=== PATIENT | male | born 1950 | race Caucasian/White ===

== ENCOUNTER 2017-07-13 09:33 | Inpatient (IN) | payer MEDICARE, BC ==
[~2017-07-13] VITALS: Ht 190.5 cm; Wt 106.0 kg
[~2017-07-13 09:33] MED LIST: midazolam 2 mg/2 ml injection ONE
[2017-07-13] MEDS ORDERED: adenosine 3mg/ml 2ml vial IV ONE (09:35)
[2017-07-13] MEDS ORDERED: aspirin 81mg tab.chew PO ONE (09:55)
[2017-07-13 10:10] LABS: BASOPHILS % (AUTO) 0.2 % (0-1); EOSINOPHILS # (AUTO) 0.2 X10'3 (0-0.9); EOSINOPHILS % (AUTO) 2.7 % (0-6); HEMATOCRIT 42.1 % (42.0-52.0); HEMOGLOBIN 14.3 g/dl (14.0-17.9); LYMPHOCYTES # (AUTO) 2.4 X10'3 (1.1-4.8); LYMPHOCYTES % (AUTO) 35.6 % (21-51); MEAN CORPUSCULAR HEMOGLOBIN 30.6 PG (27.0-31.0); MEAN CORPUSCULAR VOLUME 89.8 FL (78-98); MEAN PLATELET VOLUME 10.9 FL (7.4-10.4); MONOCYTES # (AUTO) 0.9 X10'3 (0-0.9); MONOCYTES % (AUTO) 14.2 % (2-12); NEUTROPHILS # (AUTO) 3.2 X10'3 (1.8-7.7); NEUTROPHILS % (AUTO) 47.3 % (42-75); RED BLOOD COUNT 4.68 X10'6 (4.70-6.10); RED CELL DISTRIBUTION WIDTH 17.1 % (11.5-14.5); WHITE BLOOD COUNT 6.7 X10'3 (4.5-11.0)
[2017-07-13 10:28] LABS: ALANINE AMINOTRANSFERASE 41 U/L (12-78); ALBUMIN 3.9 G/DL (3.4-5.0); ALKALINE PHOSPHATASE 103 IU/L (46-116); ANION GAP 14 (8-16); ASPARTATE AMINO TRANSFERASE 43 U/L (10-37); BILIRUBIN,TOTAL 0.6 MG/DL (0.1-1.0); BLOOD UREA NITROGEN 18 MG/DL (7-18); BUN/CREATININE RATIO 18.4 (5.4-32.0); CALCIUM 8.9 MG/DL (8.5-10.1); CHLORIDE 105 MMOL/L (99-107); CREATININE 0.98 MG/DL (0.60-1.10); GLUCOSE 129 MG/DL (70-104); MAGNESIUM 1.4 MG/DL (1.5-2.4); POTASSIUM 3.7 MMOL/L (3.5-5.1); SODIUM 141 MMOL/L (135-145); TOTAL CARBON DIOXIDE 22.5 MMOL/L (24-32); eGFR 77 ML/MIN
[2017-07-13] MEDS: amiodarone/D5 360MG/200ML BAG 200 ML IV SCH ×2 (10:29→19:27)
[2017-07-13 10:47] LABS: PLATELET COUNT 136 X10'3 (140-440)
[2017-07-13] MEDS ORDERED: CELE-193 PO (10:57)
[2017-07-13] MEDS ORDERED: COU7.5T PO (10:57)
[2017-07-13] MEDS ORDERED: OMEP40CA37 PO (10:57)
[2017-07-13] MEDS ORDERED: potassium Cl 20 mEq SR tablet PO STA (12:03)
[2017-07-13] MEDS ORDERED: magnesium 2GM in 50ml NS 50 ML IV ONE (12:05)
[2017-07-13] MEDS ORDERED: magnesium hydroxide 30ml (MOM) UD suspension PO PRN (12:25)
[2017-07-13] MEDS ORDERED: acetaminophen 325mg tablet PO PRN ×2 (12:25)
[2017-07-13] MEDS ORDERED: potassium Cl 20 mEq SR tablet PO PRN ×2 (12:25)
[2017-07-13] MEDS ORDERED: magnesium Cl slow-release 64mg tablet PO PRN (12:25)
[2017-07-13] MEDS ORDERED: mag hydrox/Alum hydrox/simeth 30ml oral suspension PO PRN (12:25)
[2017-07-13] MEDS ORDERED: ondansetron/PF 4mg/2ml inj IV PRN (12:25)
[2017-07-13] MEDS ORDERED: magnesium 4gm in 100ml NS 100 ML IV PRN (12:25)
[2017-07-13] MEDS ORDERED: HYDROcodone/acetaminophen 10/325mg tab PO PRN (12:25)
[2017-07-13] MEDS: K and/or MAG REPLACEMENT MC SCH (12:25)
[2017-07-13] MEDS ORDERED: potassium Cl 40MEQ/NS 500ml 500 ML IV PRN ×2 (12:25)
[2017-07-13] MEDS ORDERED: magnesium 2GM in 50ml NS 50 ML IV PRN (12:25)
[2017-07-13] MEDS ORDERED: HYDROcodone/acetaminophen 5mg/325mg tablet PO PRN (12:25)
[2017-07-13 12:31] LABS: INR 1.8 INR; PARTIAL THROMBOPLASTIN TIME 29 SECONDS (22-32); PROTHROMBIN TIME 18.3 SECONDS (9.0-12.0)
[2017-07-13] MEDS: normal saline 1000ml 1,000 ML IV SCH ×2 (13:31→22:49)
[2017-07-13] MEDS ORDERED: temazepam 15mg capsule PO PRN (21:00)
[2017-07-13] MEDS ORDERED: warfarin 3mg tablet PO ONE (23:30)
[2017-07-14] MEDS: normal saline 1000ml 1,000 ML IV SCH ×2 (06:40→15:31)
[2017-07-14 07:30] LABS: BASOPHILS % (AUTO) 0.3 % (0-1); EOSINOPHILS # (AUTO) 0.1 X10'3 (0-0.9); EOSINOPHILS % (AUTO) 2.2 % (0-6); HEMATOCRIT 37.7 % (42.0-52.0); HEMOGLOBIN 13.1 g/dl (14.0-17.9); LYMPHOCYTES # (AUTO) 1.1 X10'3 (1.1-4.8); LYMPHOCYTES % (AUTO) 25.8 % (21-51); MEAN CORPUSCULAR HEMOGLOBIN 30.8 PG (27.0-31.0); MEAN CORPUSCULAR HGB CONC 34.7 % (33.0-36.5); MEAN CORPUSCULAR VOLUME 88.8 FL (78-98); MEAN PLATELET VOLUME 10.8 FL (7.4-10.4); MONOCYTES # (AUTO) 0.5 X10'3 (0-0.9); MONOCYTES % (AUTO) 11.7 % (2-12); NEUTROPHILS # (AUTO) 2.7 X10'3 (1.8-7.7); PLATELET COUNT 90 X10'3 (140-440); RED BLOOD COUNT 4.24 X10'6 (4.70-6.10); RED CELL DISTRIBUTION WIDTH 17.3 % (11.5-14.5); WHITE BLOOD COUNT 4.5 X10'3 (4.5-11.0)
[2017-07-14 07:36] LABS: PROTHROMBIN TIME 20.4 SECONDS (9.0-12.0)
[2017-07-14 07:43] LABS: LARGE PLATELETS FEW; PLATELET ESTIMATE DECREASED
[2017-07-14 07:47] LABS: ALANINE AMINOTRANSFERASE 43 U/L (12-78); ALBUMIN 3.3 G/DL (3.4-5.0); ALBUMIN/GLOBULIN RATIO 0.9 (1.1-1.5); ALKALINE PHOSPHATASE 85 IU/L (46-116); ANION GAP 9 (8-16); ASPARTATE AMINO TRANSFERASE 36 U/L (10-37); BILIRUBIN,TOTAL 0.4 MG/DL (0.1-1.0); BLOOD UREA NITROGEN 17 MG/DL (7-18); BUN/CREATININE RATIO 20.5 (5.4-32.0); CALCIUM 8.5 MG/DL (8.5-10.1); CHLORIDE 107 MMOL/L (99-107); CHOL/HDL RATIO 3.2 (0.00-4.99); CHOLESTEROL 114 MG/DL (0-200); CREATININE 0.83 MG/DL (0.60-1.10); GLUCOSE 117 MG/DL (70-104); HDL CHOLESTEROL 36 MG/DL (35-60); LDL CHOLESTEROL 75 MG/DL (50-100); MAGNESIUM 1.7 MG/DL (1.5-2.4); PHOSPHORUS 3.3 MG/DL (2.3-4.5); POTASSIUM 4.2 MMOL/L (3.5-5.1); SODIUM 140 MMOL/L (135-145); TOTAL CARBON DIOXIDE 24.3 MMOL/L (24-32); TRIGLYCERIDES 48 MG/DL (20-135); eGFR > 90 ML/MIN
[2017-07-14] MEDS: K and/or MAG REPLACEMENT MC SCH (08:00)
[2017-07-14] MEDS ORDERED: phytonadione inj. 10 MG in normal saline 100ml IV soln 99 ML IV ONE (08:50)
[2017-07-14] MEDS ORDERED: magnesium 2GM in 50ml NS 50 ML IV ONE (09:00)
[2017-07-14 14:35] VITALS: BP 146/83
[2017-07-14 15:00] VITALS: BP 119/63
[2017-07-14 18:36] LABS: INR 1.6 INR; PROTHROMBIN TIME 16.5 SECONDS (9.0-12.0)
[2017-07-14 19:00] VITALS: BP 133/73
[2017-07-14 22:00] VITALS: BP 115/61
[2017-07-15 02:00] VITALS: BP 115/71
[2017-07-15] MEDS: normal saline 1000ml 1,000 ML IV SCH ×2 (04:44→14:57)
[2017-07-15 06:00] VITALS: BP 130/65
[2017-07-15 06:11] LABS: BASOPHILS % (AUTO) 0.4 % (0-1); EOSINOPHILS # (AUTO) 0.2 X10'3 (0-0.9); EOSINOPHILS % (AUTO) 4.2 % (0-6); HEMATOCRIT 39.6 % (42.0-52.0); HEMOGLOBIN 13.5 g/dl (14.0-17.9); LYMPHOCYTES # (AUTO) 1.2 X10'3 (1.1-4.8); LYMPHOCYTES % (AUTO) 23.2 % (21-51); MEAN CORPUSCULAR HEMOGLOBIN 30.8 PG (27.0-31.0); MEAN CORPUSCULAR HGB CONC 34.1 % (33.0-36.5); MEAN CORPUSCULAR VOLUME 90.3 FL (78-98); MEAN PLATELET VOLUME 11.3 FL (7.4-10.4); MONOCYTES # (AUTO) 0.6 X10'3 (0-0.9); MONOCYTES % (AUTO) 11.9 % (2-12); NEUTROPHILS # (AUTO) 3.2 X10'3 (1.8-7.7); NEUTROPHILS % (AUTO) 60.3 % (42-75); PLATELET COUNT 97 X10'3 (140-440); RED BLOOD COUNT 4.39 X10'6 (4.70-6.10); RED CELL DISTRIBUTION WIDTH 17.2 % (11.5-14.5); WHITE BLOOD COUNT 5.3 X10'3 (4.5-11.0)
[2017-07-15 06:50] LABS: ALANINE AMINOTRANSFERASE 40 U/L (12-78); ALBUMIN 3.4 G/DL (3.4-5.0); ALBUMIN/GLOBULIN RATIO 0.9 (1.1-1.5); ALKALINE PHOSPHATASE 89 IU/L (46-116); ANION GAP 12 (8-16); ASPARTATE AMINO TRANSFERASE 26 U/L (10-37); BILIRUBIN,TOTAL 0.7 MG/DL (0.1-1.0); BLOOD UREA NITROGEN 12 MG/DL (7-18); BUN/CREATININE RATIO 14.6 (5.4-32.0); CALCIUM 8.5 MG/DL (8.5-10.1); CHLORIDE 107 MMOL/L (99-107); CREATININE 0.82 MG/DL (0.60-1.10); GLUCOSE 104 MG/DL (70-104); PHOSPHORUS 3.5 MG/DL (2.3-4.5); POTASSIUM 4.2 MMOL/L (3.5-5.1); SODIUM 144 MMOL/L (135-145); TOTAL CARBON DIOXIDE 25.1 MMOL/L (24-32); TOTAL PROTEIN 7.2 G/DL (6.4-8.2); eGFR > 90 ML/MIN
[2017-07-15 07:18] LABS: LARGE PLATELETS FEW; PLATELET ESTIMATE DECREASED
[2017-07-15] MEDS: K and/or MAG REPLACEMENT MC SCH (08:00)
[2017-07-15] MEDS ORDERED: iohexol 350MG/ML 100ml bottle IV ONE (08:39)
[2017-07-15] MEDS ORDERED: LIDOcaine 1%/PF (10mg/ml) 5ml vial ONE (08:39)
[2017-07-15] MEDS ORDERED: diphenhydrAMINE 50 mg/ml inj ONE (08:53)
[2017-07-15] MEDS ORDERED: verapamil 2.5 mg/ml inj IV ONE (08:53)
[2017-07-15] MEDS ORDERED: nitroGLYCERIN-Tridil 50MG/D5W 250 ML IV ONE (08:53)
[2017-07-15] MEDS ORDERED: heparin 1,000unit/ml 10ml vial 10 ML ONE (08:54)
[2017-07-15] MEDS ORDERED: midazolam 2 mg/2 ml injection ONE (08:54)
[2017-07-15] MEDS ORDERED: fentaNYL/PF 50MCG/1 ML 2ML syringe ONE (08:54)
[2017-07-15] MEDS ORDERED: amiodarone 200mg tablet PO SCH (09:30)
[2017-07-15 11:00] VITALS: BP 119/55
[2017-07-15 15:00] VITALS: BP 101/60
[2017-07-15] MEDS ORDERED: AMIO200T57 PO (15:21)
[2017-07-15] MEDS ORDERED: MAGN400T6 PO (15:24)
== END 2017-07-15 16:45 | disposition home or self-care (01) | DRG 287 ==
LOC: ER 09:33 → ED HOLD 12:23 → EDBEDREQ 07-14 12:58 → PCU 3S 07-14 14:41
PROVIDERS: ADMIT Family Medicine; ATTEND Family Medicine
PROC: 5A2204Z Restoration of Cardiac Rhythm, Single (ICD-10-PCS; 2017-07-13)
PROC: 4A023N7 Measurement of Cardiac Sampling and Pressure, Left Heart, Percutaneous Approach (ICD-10-PCS; principal; 2017-07-15)
PROC: B2111ZZ Fluoroscopy of Multiple Coronary Arteries using Low Osmolar Contrast (ICD-10-PCS; 2017-07-15)
PROC: B2151ZZ Fluoroscopy of Left Heart using Low Osmolar Contrast (ICD-10-PCS; 2017-07-15)
DX: R55 Syncope and collapse (principal); E83.42 Hypomagnesemia; I48.91 Unspecified atrial fibrillation; I82.5Z1 Chronic embolism and thrombosis of unspecified deep veins of right distal lower extremity; R00.0 Tachycardia, unspecified; G47.30 Sleep apnea, unspecified; I25.10 Atherosclerotic heart disease of native coronary artery without angina pectoris; M19.90 Unspecified osteoarthritis, unspecified site; G89.29 Other chronic pain; K21.9 Gastro-esophageal reflux disease without esophagitis; Z79.01 Long term (current) use of anticoagulants; Z79.899 Other long term (current) drug therapy; Z87.442 Personal history of urinary calculi; Z82.49 Family history of ischemic heart disease and other diseases of the circulatory system; W31.89XA Contact with other specified machinery, initial encounter; Y93.89 Activity, other specified; Y92.89 Other specified places as the place of occurrence of the external cause; Y99.8 Other external cause status
CPT/HCPCS: 36415; 71045; 80053; 80061; 83735; 83880; 84100; 84484; 85025; 85610; 85730; 87070; 93005; 93306; 93458; 99152; 99291; A4620; A6258; C1769; J0153; J1200; J1644; J2001; J2250; J3010; J3430; J3475; J3490; J7030; Q9967

== ENCOUNTER 2020-07-15 05:25 | Day surgery (SDC) | payer MEDICARE, BC ==
[2020-07-07 10:25] LABS: BASOPHILS % (AUTO) 0.4 % (0-1); EOSINOPHILS # (AUTO) 0.1 X10'3 (0-0.9); EOSINOPHILS % (AUTO) 2.3 % (0-6); LYMPHOCYTES # (AUTO) 1.1 X10'3 (1.1-4.8); LYMPHOCYTES % (AUTO) 23.8 % (21-51); MEAN CORPUSCULAR HGB CONC 34.2 g/dL (33.0-36.5); MEAN CORPUSCULAR VOLUME 96.4 FL (78-98); MONOCYTES # (AUTO) 0.8 X10'3 (0-0.9); MONOCYTES % (AUTO) 17.7 % (2-12); NEUTROPHILS # (AUTO) 2.5 X10'3 (1.8-7.7); NEUTROPHILS % (AUTO) 55.8 % (42-75); PRE OP HEMATOCRIT 45.9 % (42.0-52.0); PRE OP HEMOGLOBIN 15.7 g/dL (14.0-17.9); PRE OP PLATELET COUNT 123 X10'3 (140-440); RED BLOOD COUNT 4.76 X10'6 (4.70-6.10); RED CELL DISTRIBUTION WIDTH 15.2 % (11.5-14.5)
[2020-07-07 10:39] LABS: ALBUMIN/GLOBULIN RATIO 0.9 (1.1-1.5); ALKALINE PHOSPHATASE 102 IU/L (46-116); BLOOD UREA NITROGEN 20 MG/DL (7-18); CALCIUM 9.4 MG/DL (8.5-10.1); CHLORIDE 101 MMOL/L (99-107); PRE OP ALT 50 U/L (30-65); PRE OP ANION GAP 9 (8-16); PRE OP AST 37 U/L (10-37); PRE OP BILIRUB, TOTAL 0.6 MG/DL (0.0-1.0); PRE OP GLUCOSE 107 MG/DL (70-104); PRE OP POTASSIUM 4.1 MMOL/L (3.4-5.1); PRE OP SODIUM 136 MMOL/L (135-145); TOTAL CARBON DIOXIDE 26.5 MMOL/L (24-32); TOTAL PROTEIN 8.5 G/DL (6.4-8.2)
[2020-07-07 10:41] LABS: BUN/CREATININE RATIO 20.6 (5.4-32.0); CREATININE 0.97 MG/DL (0.60-1.10); eGFR 77 ML/MIN
[2020-07-07 10:59] LABS: TOTAL CELLS COUNTED 100
[2020-07-07 11:00] LABS: PLATELET ESTIMATE DECREASED
[2020-07-07 11:01] LABS: LARGE PLATELETS FEW
[2020-07-15] VITALS (18 sets, daily range): BP systolic 108–146; BP diastolic 52–98
[~2020-07-15] VITALS: Ht 190.5 cm; Wt 122.5 kg
[~2020-07-15 05:25] MED LIST changes: +CELE-85 PO; +COU7.5T PO; +HYDR-3972 PO; +OMEP20TA23 PO; -midazolam 2 mg/2 ml injection ONE
[2020-07-15] MEDS ORDERED: ceFAZolin inj. 3,000 MG in normal saline 100ml IV soln 100 ML IV ONE (05:30)
[2020-07-15] MEDS ORDERED: famotidine 20mg tablet PO ONE (05:30)
[2020-07-15] MEDS ORDERED: tranexamic acid inj. 1,000 MG in normal saline 100 ML IV ONE (05:30)
[2020-07-15] MEDS ORDERED: LIDOcaine 1% (10mg/ml) 2ml vial ONE (05:56)
[2020-07-15] MEDS: ringers solution, lacted 1,000 ML IV SCH ×2 (06:05→13:29)
[2020-07-15] MEDS ORDERED: ENOX30DI2 SQ (06:12)
[2020-07-15 06:38] LABS: PRE OP INR 1.2 INR; PRE OP PROTIME 11.9 SECONDS (9.0-12.0)
[2020-07-15] MEDS ORDERED: ceFAZolin inj. 3,000 MG in sodium chloride irrig. sol 3,000 ML IR ONE (06:45)
[2020-07-15] MEDS ORDERED: propofol 10mg/ml 20ml vial IV ONE (07:20)
[2020-07-15] MEDS ORDERED: fentaNYL/PF 50MCG/1 ML 2ML syringe ONE (07:25)
[2020-07-15] MEDS ORDERED: MIDAZolam 5mg/ml 2ml vial ONE (07:25)
[2020-07-15] MEDS ORDERED: meperidine/PF 25mg/ml syringe IV PRN ×3 (09:10)
[2020-07-15] MEDS ORDERED: proCHLORperazine 10 MG/2 ml inj IV PRN (09:10)
[2020-07-15] MEDS ORDERED: labetalol 20mg/4ml (5mg/ml) syringe IV PRN (09:10)
[2020-07-15] MEDS ORDERED: HYDROmorphone/PF 0.2 MG/ML SYRINGE IV PRN ×2 (09:10)
[2020-07-15] MEDS ORDERED: ondansetron/PF 4mg/2ml inj IV PRN ×2 (09:10→11:10)
[2020-07-15] MEDS ORDERED: ringers solution, lacted 1,000 ML IV SCH (09:10)
[2020-07-15] MEDS ORDERED: hydrALAZINE 20mg/ml inj. IV PRN (09:10)
[2020-07-15] MEDS ORDERED: acetaminophen 1,000mg/100ml IV 100 ML IV PRN (09:10)
[2020-07-15] MEDS ORDERED: HYDROmorphone 1 mg/ml syringe IV PRN (11:10)
[2020-07-15] MEDS ORDERED: diphenhydrAMINE 25mg capsule PO PRN ×2 (11:10)
[2020-07-15] MEDS ORDERED: magnesium hydroxide 30ml (MOM) UD suspension PO PRN (11:10)
[2020-07-15] MEDS ORDERED: acetaminophen 325mg tablet PO PRN (11:10)
[2020-07-15] MEDS ORDERED: HYDROcodone/acetaminophen 10/325mg tab PO PRN (11:10)
[2020-07-15] MEDS ORDERED: bisacodyl 10mg suppository rectal RC PRN (11:10)
--- NOTE | 2020-07-15 11:10 | NUR ---
Received from OR via BED, accompanied by Anesthesiologist CASSIE and report given by Anesthesiolgist. PATIENT A&OX4, DENIES PAIN, V/S WNL, NEUROVASCULAR CHECKS INTACT, SCD ON, 18G PIV RUE, OLAF DRESSING RIGHT KNEE WRAP POWDER PACK CDI, SENSATIONS AT T10, F/C DRAINING CLEAR YELLOW URINE
--- NOTE | 2020-07-15 11:55 | NUR ---
Patient in room . I have received report from Antonio and had the opportunity to ask questions and assume patient care.
--- NOTE | 2020-07-15 12:40 | NUR ---
Spoke to OR nurse regarding 529 transexamic acid order and if it was given or not. Medication contraindicated due to his DVT history med NON admined on JUL.
[2020-07-15 15:37] LABS: BASOPHILS % (AUTO) 0.1 % (0-1); EOSINOPHILS % (AUTO) 0.5 % (0-6); HEMATOCRIT 41.9 % (42.0-52.0); HEMOGLOBIN 14.1 g/dl (14.0-17.9); LYMPHOCYTES # (AUTO) 0.7 X10'3 (1.1-4.8); LYMPHOCYTES % (AUTO) 9.8 % (21-51); MEAN CORPUSCULAR HEMOGLOBIN 32.9 PG (27.0-31.0); MEAN CORPUSCULAR HGB CONC 33.6 g/dL (33.0-36.5); MEAN CORPUSCULAR VOLUME 97.9 FL (78-98); MEAN PLATELET VOLUME 10.3 FL (7.4-10.4); MONOCYTES # (AUTO) 0.6 X10'3 (0-0.9); MONOCYTES % (AUTO) 8.5 % (2-12); NEUTROPHILS # (AUTO) 5.8 X10'3 (1.8-7.7); NEUTROPHILS % (AUTO) 81.1 % (42-75); PLATELET COUNT 102 X10'3 (140-440); RED BLOOD COUNT 4.28 X10'6 (4.70-6.10); RED CELL DISTRIBUTION WIDTH 15.2 % (11.5-14.5); WHITE BLOOD COUNT 7.2 X10'3 (4.5-11.0)
[2020-07-15] MEDS: HYDROcodone/acetaminophen 10/325mg tab PO PRN ×3 (15:56→23:47)
[2020-07-15] MEDS: ceFAZolin/D5W- 1GM premix 50 ML IV SCH ×2 (16:06→23:46)
--- NOTE | 2020-07-15 18:30 | NUR ---
Patient in room ORTHO 4013. I have received report from Lolita DELAROSA and had the opportunity to ask questions and assume patient care.
--- NOTE | 2020-07-15 18:32 | NUR ---
Problems reprioritized. Patient report given, questions answered & plan of care reviewed with [place].
[2020-07-15] MEDS ORDERED: vancomycin/NS 1 GM ADD-VANTAGE 250 ML IV SCH (20:00)
[2020-07-15] MEDS: potassium Cl 20mEq in NS 1,000 ML IV SCH ×2 (20:06→21:10)
[2020-07-15] MEDS: sennosides 8.6mg tablet PO SCH (20:07)
[2020-07-15] MEDS: warfarin 7.5mg tablet PO SCH (20:09)
[2020-07-16 02:00] VITALS: BP 126/49
[2020-07-16] MEDS: HYDROcodone/acetaminophen 10/325mg tab PO PRN ×4 (04:40→16:31)
--- NOTE | 2020-07-16 06:27 | NUR ---
Problems reprioritized. Patient report given, questions answered & plan of care reviewed with Lolita DELAROSA/Gardenia DELAROSA.
[2020-07-16 06:34] VITALS: BP 134/62
--- NOTE | 2020-07-16 06:34 | NUR ---
Patient in room ORTHO 4013. I have received report from Africa and had the opportunity to ask questions and assume patient care.
[2020-07-16] MEDS: potassium Cl 20mEq in NS 1,000 ML IV SCH ×2 (07:20→17:10)
[2020-07-16 08:31] LABS: ALANINE AMINOTRANSFERASE 47 U/L (12-78); ALBUMIN 3.1 G/DL (3.4-5.0); ALBUMIN/GLOBULIN RATIO 0.8 (1.1-1.5); ALKALINE PHOSPHATASE 78 IU/L (46-116); ANION GAP 11 (8-16); ASPARTATE AMINO TRANSFERASE 38 U/L (10-37); BILIRUBIN,TOTAL 0.6 MG/DL (0.1-1.0); BLOOD UREA NITROGEN 18 MG/DL (7-18); BUN/CREATININE RATIO 17.1 (5.4-32.0); CALCIUM 8.5 MG/DL (8.5-10.1); CHLORIDE 104 MMOL/L (99-107); CREATININE 1.05 MG/DL (0.60-1.10); GLUCOSE 124 MG/DL (70-104); POTASSIUM 4.2 MMOL/L (3.5-5.1); SODIUM 139 MMOL/L (135-145); TOTAL CARBON DIOXIDE 23.7 MMOL/L (24-32); eGFR 70 ML/MIN
[2020-07-16 08:34] LABS: BASOPHILS % (AUTO) 0.3 % (0-1); EOSINOPHILS # (AUTO) 0.1 X10'3 (0-0.9); EOSINOPHILS % (AUTO) 1.3 % (0-6); HEMATOCRIT 37.7 % (42.0-52.0); HEMOGLOBIN 12.8 g/dl (14.0-17.9); LYMPHOCYTES # (AUTO) 1.3 X10'3 (1.1-4.8); LYMPHOCYTES % (AUTO) 12.8 % (21-51); MEAN CORPUSCULAR HEMOGLOBIN 32.8 PG (27.0-31.0); MEAN CORPUSCULAR VOLUME 96.4 FL (78-98); MEAN PLATELET VOLUME 10.2 FL (7.4-10.4); MONOCYTES # (AUTO) 1.2 X10'3 (0-0.9); MONOCYTES % (AUTO) 12.8 % (2-12); NEUTROPHILS # (AUTO) 7.1 X10'3 (1.8-7.7); NEUTROPHILS % (AUTO) 72.8 % (42-75); PLATELET COUNT 130 X10'3 (140-440); RED BLOOD COUNT 3.91 X10'6 (4.70-6.10); RED CELL DISTRIBUTION WIDTH 14.9 % (11.5-14.5); WHITE BLOOD COUNT 9.7 X10'3 (4.5-11.0)
[2020-07-16] MEDS ORDERED: ROPIVACAINE IU ONE (08:45)
[2020-07-16] MEDS ORDERED: CLONIDINE IU ONE (08:45)
[2020-07-16] MEDS ORDERED: [UNRECOGNIZED DRUG - OTHER] IU ONE (08:45)
[2020-07-16] MEDS ORDERED: KETOROLAC TROMETHAMINE IU ONE (08:45)
[2020-07-16] MEDS: pantoprazole 40mg Tablet.DR PO SCH (08:57)
[2020-07-16] MEDS: enoxaparin 40mg/0.4ml syringe SQ SCH (08:57)
[2020-07-16 10:04] VITALS: BP 125/55
--- NOTE | 2020-07-16 11:55 | NUR ---
Assumed care of pt, no change in condition.
--- NOTE | 2020-07-16 12:50 | NUR ---
Problems reprioritized. Patient report given, questions answered & plan of care reviewed with Belgica DELAROSA.
--- NOTE | 2020-07-16 15:00 | NUR ---
Joint consult: Pt s/p right TKA, seen at bedside for written and verbal protein education. Pt states he follows a higher protein diet at home so he is familiar with the importance of protein intake. Pt endorses a good appetite and states he's getting full from meals. Pt denies food allergies or difficulty chewing/swallowing. Pt with some c/o constipation and agrees to prunes and prune juice with dinner fabian, d/w dietary. Pt receiving routine bowel care with PRN bowel care available. Encouraged pt to d/w RN if he desires additional bowel care. RD contact information provided. Will remain available. Addendum: 07/16/20 at [address] Amended: Links added.
[2020-07-16 18:00] VITALS: BP 136/65
--- NOTE | 2020-07-16 18:03 | NUR ---
Problems reprioritized. Patient report given, questions answered & plan of care reviewed.
[2020-07-16] MEDS: sennosides 8.6mg tablet PO SCH (20:17)
[2020-07-16] MEDS: warfarin 7.5mg tablet PO SCH (20:20)
[2020-07-16 22:00] VITALS: BP 138/60
[2020-07-17] MEDS: HYDROcodone/acetaminophen 10/325mg tab PO PRN ×3 (00:35→10:30)
[2020-07-17] MEDS: potassium Cl 20mEq in NS 1,000 ML IV SCH (02:42)
--- NOTE | 2020-07-17 06:13 | NUR ---
Patient in room ORTHO 4013. I have received report from Leroy DELAROSA and had the opportunity to ask questions and assume patient care.
[2020-07-17 07:39] VITALS: BP 140/50
[2020-07-17 07:48] LABS: BASOPHILS % (AUTO) 0.3 % (0-1); EOSINOPHILS # (AUTO) 0.2 X10'3 (0-0.9); EOSINOPHILS % (AUTO) 3.1 % (0-6); HEMATOCRIT 34.4 % (42.0-52.0); HEMOGLOBIN 11.7 g/dl (14.0-17.9); LYMPHOCYTES % (AUTO) 15.7 % (21-51); MEAN CORPUSCULAR HEMOGLOBIN 32.9 PG (27.0-31.0); MEAN CORPUSCULAR HGB CONC 34.1 g/dL (33.0-36.5); MEAN CORPUSCULAR VOLUME 96.7 FL (78-98); MEAN PLATELET VOLUME 10.2 FL (7.4-10.4); MONOCYTES # (AUTO) 1.2 X10'3 (0-0.9); MONOCYTES % (AUTO) 18.3 % (2-12); NEUTROPHILS % (AUTO) 62.6 % (42-75); PLATELET COUNT 102 X10'3 (140-440); RED BLOOD COUNT 3.56 X10'6 (4.70-6.10); RED CELL DISTRIBUTION WIDTH 15.3 % (11.5-14.5); WHITE BLOOD COUNT 6.3 X10'3 (4.5-11.0)
[2020-07-17 08:14] LABS: ALANINE AMINOTRANSFERASE 47 U/L (12-78); ALBUMIN 2.9 G/DL (3.4-5.0); ALBUMIN/GLOBULIN RATIO 0.8 (1.1-1.5); ALKALINE PHOSPHATASE 72 IU/L (46-116); ANION GAP 11 (8-16); ASPARTATE AMINO TRANSFERASE 36 U/L (10-37); BILIRUBIN,TOTAL 0.8 MG/DL (0.1-1.0); BLOOD UREA NITROGEN 12 MG/DL (7-18); BUN/CREATININE RATIO 13.5 (5.4-32.0); CALCIUM 8.4 MG/DL (8.5-10.1); CHLORIDE 102 MMOL/L (99-107); CREATININE 0.89 MG/DL (0.60-1.10); GLUCOSE 109 MG/DL (70-104); SODIUM 137 MMOL/L (135-145); TOTAL CARBON DIOXIDE 23.8 MMOL/L (24-32); TOTAL PROTEIN 6.7 G/DL (6.4-8.2); eGFR 85 ML/MIN
[2020-07-17] MEDS ORDERED: celeCOXIB 100mg capsule PO SCH (09:05)
--- NOTE | 2020-07-17 09:08 | NUR ---
Spoke with Dr. Little regarding patients PLT level of 102 and 0800 lovenox order, MD okayed to give lovenox this morning. Also spoke with him about restarting the patients home medication of celebrex in which he said was okay to give. Physical therapy reccomending home health due to poor mobility and Dr. Little requested to patient to follow up with him in office on Sunday 07/23 and he will set that up for him.
[2020-07-17] MEDS: enoxaparin 40mg/0.4ml syringe SQ SCH (09:16)
[2020-07-17] MEDS: pantoprazole 40mg Tablet.DR PO SCH (09:16)
--- NOTE | 2020-07-17 11:21 | NUR ---
Discharge instructions given to patient, verbalizes understanding of all concepts discussed and the need to make a follow up jazlyn with Dr. Little on Sunday. Two island dressings given to patient to go home with and triplicate sent with him.
[2020-07-17 11:24] VITALS: BP 134/68
== END 2020-07-17 11:40 | disposition home or self-care (01) ==
LOC: PAS 05:25 → ORTHO 4S 12:41 → PAS 07-17 11:40
PROVIDERS: ATTEND Orthopaedic Surgery
DX: M17.11 Unilateral primary osteoarthritis, right knee (principal); Z20.822 Contact with and (suspected) exposure to COVID-19; G89.18 Other acute postprocedural pain; G47.33 Obstructive sleep apnea (adult) (pediatric); I48.91 Unspecified atrial fibrillation; K21.9 Gastro-esophageal reflux disease without esophagitis; Z95.810 Presence of automatic (implantable) cardiac defibrillator; Z79.899 Other long term (current) drug therapy; Z96.652 Presence of left artificial knee joint; Z96.642 Presence of left artificial hip joint; Z86.718 Personal history of other venous thrombosis and embolism; Z79.01 Long term (current) use of anticoagulants; Z87.442 Personal history of urinary calculi; Z98.890 Other specified postprocedural states
CPT/HCPCS: 27447; 36415; 64447; 76942; 80053; 82948; 85025; 85610; 85730; 86885; 86900; 86901; 86920; 87081; 87635; 97110; 97116; 97530; C1713; C1758; C1776; J0690; J0735; J1170; J1885; J2001; J2250; J2704; J3010; J3370; J3480; Q0163; 85007; A6455; A7000; G0378; J1650; J2795; J7120

== ENCOUNTER 2021-03-31 12:39 | Emergency (ER) | payer MEDICARE, BC ==
[~2021-03-31] VITALS: Ht 190.5 cm; Wt 122.5 kg
[~2021-03-31 12:39] MED LIST changes: -CELE-85 PO; -HYDR-3972 PO
[2021-03-31 14:19] LABS: BASOPHILS % (AUTO) 0.4 % (0-1); EOSINOPHILS % (AUTO) 0.6 % (0-6); HEMATOCRIT 42.7 % (42.0-52.0); HEMOGLOBIN 14.5 g/dl (14.0-17.9); LYMPHOCYTES # (AUTO) 0.5 X10'3 (1.1-4.8); LYMPHOCYTES % (AUTO) 8.3 % (21-51); MEAN CORPUSCULAR HEMOGLOBIN 31.8 PG (27.0-31.0); MEAN CORPUSCULAR HGB CONC 33.8 g/dL (33.0-36.5); MEAN PLATELET VOLUME 10.1 FL (7.4-10.4); MONOCYTES # (AUTO) 0.8 X10'3 (0-0.9); MONOCYTES % (AUTO) 12.7 % (2-12); PLATELET COUNT 110 X10'3 (140-440); RED BLOOD COUNT 4.55 X10'6 (4.70-6.10); RED CELL DISTRIBUTION WIDTH 15.8 % (11.5-14.5); WHITE BLOOD COUNT 6.4 X10'3 (4.5-11.0)
[2021-03-31 14:32] LABS: PARTIAL THROMBOPLASTIN TIME 35 SECONDS (22-32)
[2021-03-31 14:36] LABS: ALANINE AMINOTRANSFERASE 122 U/L (12-78); ALBUMIN 3.9 G/DL (3.4-5.0); ALBUMIN/GLOBULIN RATIO 0.9 (1.1-1.5); ALKALINE PHOSPHATASE 111 IU/L (46-116); ANION GAP 11 (8-16); ASPARTATE AMINO TRANSFERASE 99 U/L (10-37); BILIRUBIN,TOTAL 0.5 MG/DL (0.1-1.0); BLOOD UREA NITROGEN 13 MG/DL (7-18); BUN/CREATININE RATIO 13.1 (5.4-32.0); CALCIUM 8.9 MG/DL (8.5-10.1); CHLORIDE 104 MMOL/L (99-107); CREATININE 0.99 MG/DL (0.60-1.10); GLUCOSE 112 MG/DL (70-104); POTASSIUM 4.4 MMOL/L (3.5-5.1); SODIUM 140 MMOL/L (135-145); TOTAL CARBON DIOXIDE 24.7 MMOL/L (24-32); TOTAL PROTEIN 8.3 G/DL (6.4-8.2); eGFR 75 ML/MIN
[2021-03-31 14:45] LABS: MAGNESIUM 1.7 MG/DL (1.5-2.4)
[2021-03-31] MEDS ORDERED: acetaminophen 325mg tablet PO ONE (15:10)
--- NOTE | 2021-03-31 16:00 | NUR ---
IOTRONIK INTERROGATION CAN NOT BE DONE WE DON'T HAVE MACHINE AVAILABLE TO INTERROGATE THE ICD .FOR ANY QUES CALL BOOGIE AT [facility] AT [phone].
--- NOTE | 2021-03-31 16:11 | NUR ---
SPOKE TO BOOGIE AT [facility] PER OBOGIE PT HAS 2 OPTION EITHER TELL SOMEONE TO BRING THE MONITOR FROM HOME TOM THEY CAN CHECK THE VENT OR ADMIT THE PT TO HOSPITAL. I HAVE SPOKEN TO DR CHOI REGARDING PT ICD INTERROGATION ,INFORMED BOOGIE AT [facility] THAT MD WOULD LIKE TO ADMIT THE PT TO HOSPITAL AND INTERROGATE THE ICD IN AM.
[2021-03-31 17:44] VITALS: BP 156/83
== END 2021-03-31 17:41 | disposition home or self-care (01) ==
LOC: ER 12:40
DX: R55 Syncope and collapse (principal); M54.89 Other dorsalgia; R42 Dizziness and giddiness; K21.9 Gastro-esophageal reflux disease without esophagitis; M19.90 Unspecified osteoarthritis, unspecified site; Z87.442 Personal history of urinary calculi; Z86.718 Personal history of other venous thrombosis and embolism; Z95.0 Presence of cardiac pacemaker; Z98.890 Other specified postprocedural states; Z79.899 Other long term (current) drug therapy
CPT/HCPCS: 36415; 70450; 71045; 72125; 80053; 83735; 83880; 84484; 85025; 85610; 85730; 93005; 99285

== ENCOUNTER 2022-01-27 07:47 | Day surgery (SDC) | payer MEDICARE, BC ==
[2022-01-26 12:31] LABS: BASOPHILS % (AUTO) 0.4 % (0-1); EOSINOPHILS # (AUTO) 0.1 X10'3 (0-0.9); EOSINOPHILS % (AUTO) 2.3 % (0-6); LYMPHOCYTES # (AUTO) 0.8 X10'3 (1.1-4.8); LYMPHOCYTES % (AUTO) 21.7 % (21-51); MEAN CORPUSCULAR HEMOGLOBIN 31.7 PG (27.0-31.0); MEAN CORPUSCULAR HGB CONC 33.2 g/dL (33.0-36.5); MEAN CORPUSCULAR VOLUME 95.5 FL (78-98); MEAN PLATELET VOLUME 9.1 FL (7.4-10.4); MONOCYTES # (AUTO) 0.6 X10'3 (0-0.9); MONOCYTES % (AUTO) 17.8 % (2-12); NEUTROPHILS % (AUTO) 57.8 % (42-75); PRE OP HEMATOCRIT 40.3 % (42.0-52.0); PRE OP HEMOGLOBIN 13.4 g/dL (14.0-17.9); RED BLOOD COUNT 4.22 X10'6 (4.70-6.10); RED CELL DISTRIBUTION WIDTH 16.7 % (11.5-14.5)
[2022-01-26 12:51] LABS: ALBUMIN 3.4 G/DL (3.4-5.0); ALBUMIN/GLOBULIN RATIO 0.8 (1.1-1.5); ALKALINE PHOSPHATASE 125 IU/L (46-116); BLOOD UREA NITROGEN 12 MG/DL (7-18); BUN/CREATININE RATIO 13.6 (5.4-32.0); CALCIUM 8.8 MG/DL (8.5-10.1); CHLORIDE 104 MMOL/L (99-107); CREATININE 0.88 MG/DL (0.60-1.10); PRE OP ALT 71 U/L (30-65); PRE OP ANION GAP 8 (8-16); PRE OP AST 81 U/L (10-37); PRE OP BILIRUB, TOTAL 0.8 MG/DL (0.0-1.0); PRE OP GLUCOSE 120 MG/DL (70-104); PRE OP POTASSIUM 4.2 MMOL/L (3.4-5.1); PRE OP SODIUM 139 MMOL/L (135-145); TOTAL CARBON DIOXIDE 27.2 MMOL/L (24-32); TOTAL PROTEIN 7.9 G/DL (6.4-8.2); eGFR 85 ML/MIN
[2022-01-26 12:57] LABS: ANISOCYTOSIS 1+; PLATELET ESTIMATE DECREASED; TOTAL CELLS COUNTED 100
[2022-01-26 12:58] LABS: PRE OP PLATELET COUNT 81 X10'3 (140-440)
[2022-01-26 12:59] LABS: PRE OP INR 1.2 INR; PRE OP PROTIME 12.4 SECONDS (9.0-12.0)
[~2022-01-27] VITALS: Ht 190.5 cm; Wt 127.2 kg
[2022-01-27] VITALS (8 sets, daily range): BP systolic 115–138; BP diastolic 63–71
[~2022-01-27 07:47] MED LIST changes: +CELE-85 PO; +ceFAZolin inj. 3,000 MG in normal saline 100ml IV soln 100 ML IV ONE; +famotidine 20mg tablet PO ONE; +ringers solution, lacted 1,000 ML IV SCH
[2022-01-27] MEDS ORDERED: ENOX40DI11 SQ (08:33)
[2022-01-27] MEDS ORDERED: bacitracin 15gm ointment TP ONE (10:12)
[2022-01-27] MEDS ORDERED: BUPIVAcaine/PF 2.5 mg/ml (0.25%) 30ml vial ONE (10:12)
[2022-01-27] MEDS ORDERED: MIDAZolam 1 MG/ML 5ML VIAL ONE (10:22)
[2022-01-27] MEDS ORDERED: fentaNYL /PF 50mcg/ml 5ml ampule ONE (10:22)
[2022-01-27] MEDS ORDERED: ondansetron/PF 4mg/2ml inj ONE (10:24)
[2022-01-27] MEDS ORDERED: sevoflurane 250ml liquid IH ONE (10:24)
[2022-01-27] MEDS ORDERED: rocuronium 10mg/ml inj IV ONE (10:45)
[2022-01-27] MEDS ORDERED: LIDOcaine 1%/PF 5ML 10 MG/ML VIAL ONE (10:45)
[2022-01-27] MEDS ORDERED: dexamethasone sod phosphate 4mg/ml inj. ONE (10:45)
[2022-01-27] MEDS ORDERED: propofol inj 20 ML IV ONE (10:45)
[2022-01-27] MEDS ORDERED: ROPIVAcaine 0.5% (5mg/ml) 30ml vial ONE (10:45)
[2022-01-27] MEDS ORDERED: BUPIVAcaine/PF 7.5mg/ml (0.75%) 10ml vial ONE (11:11)
[2022-01-27] MEDS ORDERED: ondansetron/PF 4mg/2ml inj IV PRN (11:30)
[2022-01-27] MEDS ORDERED: meperidine/PF 25mg/ml syringe IV PRN ×3 (11:30)
[2022-01-27] MEDS ORDERED: morphine 2 MG/ML inj. syringe IV PRN (11:30)
[2022-01-27] MEDS ORDERED: morphine 4 MG/ML inj SYRINge IV PRN (11:30)
[2022-01-27] MEDS ORDERED: proCHLORperazine 10 MG/2 ml inj IV PRN (11:30)
[2022-01-27] MEDS ORDERED: ringers solution, lacted 1,000 ML IV SCH (11:30)
--- NOTE | 2022-01-27 12:40 | NUR ---
Received from OR via BED, accompanied by Anesthesiologist and report given by Anesthesiologist. PATIENT WAKING UP, NO S/S OF PAIN, V/S WNL, SCD ON, 20G TO RUE, RIGHT FOOT SPLINT BOOT AND ROYA WRAP DRESSING W/ 4X4 CDI
--- NOTE | 2022-01-27 13:40 | NUR ---
PATIENT A&OX4, DENIES PAIN, V/S WNL, SCD OFF, 20G TO RUE D/C, RIGHT FOOT SPLINT BOOT AND ROYA WRAP DRESSING W/ 4X4 CDI, I HAVE REVIEWED D/C INSTRUCTIONS WITH PATIENT and they have verbalized understanding patient d/c home with all belongings and family gave transport home.
== END 2022-01-27 13:40 | disposition home or self-care (01) ==
LOC: PAS 07:47
PROVIDERS: ATTEND Podiatrist Foot & Ankle Surgery
DX: M76.61 Achilles tendinitis, right leg (principal); M21.6X1 Other acquired deformities of right foot; M92.61 Juvenile osteochondrosis of tarsus, right ankle; M19.90 Unspecified osteoarthritis, unspecified site; K21.9 Gastro-esophageal reflux disease without esophagitis; M77.31 Calcaneal spur, right foot; Z79.899 Other long term (current) drug therapy; Z98.890 Other specified postprocedural states; Z79.01 Long term (current) use of anticoagulants; Z20.822 Contact with and (suspected) exposure to COVID-19; G89.18 Other acute postprocedural pain; Z87.442 Personal history of urinary calculi; I48.91 Unspecified atrial fibrillation; Z88.8 Allergy status to other drugs, medicaments and biological substances; Z86.718 Personal history of other venous thrombosis and embolism
CPT/HCPCS: 27650; 27687; 28119; 64447; 64450; 73620; 76942; 80053; 82948; 85025; 85610; 85730; 87811; 93005; J0690; J1100; J2250; J2405; J2704; J2795; J3010; J3490; J7120; Z7512; 76000; 85007

== ENCOUNTER 2024-11-30 17:17 | Emergency (ER) | payer MEDICARE, BC ==
[~2024-11-30] VITALS: Ht 190.5 cm; Wt 113.0 kg
[~2024-11-30 17:17] MED LIST changes: +AMIO200T67 PO; +CELE-127 PO; -CELE-85 PO; -COU7.5T PO; -ceFAZolin inj. 3,000 MG in normal saline 100ml IV soln 100 ML IV ONE; -famotidine 20mg tablet PO ONE; -ringers solution, lacted 1,000 ML IV SCH
--- NOTE | 2024-11-30 17:49 | RADIOLOGY REPORT ---
DI SHOULDER, COMPLETE (MIN 2 VWS) INDICATION: Shoulder Pain TECHNICAL DATA: 3 views were obtained of the left shoulder. COMPARISON: None FINDINGS: There is no fracture or focal bone abnormality. The glenohumeral joint is degenerative. The acromiocl avicular joint appears degenerative. The humeral head is not high riding. Adjacent soft tissues are w ithin normal limits. Degenerative changes are noted involving the visualized spine. IMPRESSION: Degenerative changes of the right shoulder. No acute fracture or dislocation of the left shoulder.
[2024-11-30] MEDS ORDERED: DEXAMETHASONE 6 MG TABLET PO SCH (19:40)
--- NOTE | 2024-11-30 19:40 | Physician Documentation ---
History of Present Illness ~ Chief Complaint: Shoulder pain Stated Complaint: RT SHOULDER PAIN Time Seen by MD: 19:04 Primary Medical Doctor: CLARISSA gonzales HPI 74 year old male fell on R shoulder several days ago, now experiencing severe R shoulder pain and is using sling from home. Denies other injury, has history of rotator cuff tear in that shoulder. Tetanus within 5 years?: Yes Medication Reconciliation Allergies: Coded Allergies: No Known Allergies (Unverified , 01/27/09) Scheduled Amiodarone HCl (Amiodarone HCl), 1 TAB PO DAILY Omeprazole Magnesium (Prilosec Otc), 20 MG PO DAILY, (Reported) Scheduled PRN Celecoxib (Celecoxib), 1 CAP PO BID PRN for pain, (Reported) Past Medical History Past Medical History: *CARDIOVASCULAR*, GERD, Kidney Stones, *MUSCULOSKELETAL*, Arthritis, Deep Vein Thrombosis Past Surgical History: orthopedic surgeries, pacemaker Alcohol Use: None Drug Use: none Lives In: Home Occupation: retired Review of Systems All Other Systems at this time: Reviewed and Negative Physical Exam Vital Signs: RN Vital Signs have been reviewed: Yes, Temperature: 99.5, Heart Rate: 62, Respiratory Rate: 16, BP: 163/71, Pulse Oximetry: 95, Weight: 113.000 Oxygen Flow Rate: 0 Physical Exam HEENT: PERRL, moist oral mucosa, EOMI Pulmonary: No respiratory distress MSK: no deformity, diffusely tender Skin: w/d/i, no rash Neuro: alert, nonfocal Psych: normal affect Progress Results/Orders Results/Orders Completed Orders - PHILIP SANCHES MD Ketorolac Trometh 30mg/Ml Vial (Toradol (11/30/24 19:40) Dexamethasone 6mg Tablet (Dexamethasone (11/30/24 19:40) Hydrocodone/Apap 5/325mg Tab (Taylor 5/32 (11/30/24 19:40) Dexamethasone 6mg Tablet (Dexamethasone (11/30/24 19:40) Medications Received in ER Medications (Trade) Dose Ordered Sig/Annalise Route PRN Reason Start Time Stop Time Status Last Admin Dose Admin (Toradol inj. 30mg/ml) 30 mg ONCE ONCE IM 11/30/24 19:40 11/30/24 19:41 DC 11/30/24 19:58 30 MG (Taylor 5/325mg tablet) 1 tab ONCE ONCE PO 11/30/24 19:40 11/30/24 19:41 DC 11/30/24 19:59 1 TAB (Dexamethasone 6mg tablet) 6 mg ONCE ONCE PO 11/30/24 19:40 11/30/24 19:41 DC 11/30/24 19:58 6 MG Vital Signs 11/30/24 11/30/24 11/30/24 17:19 19:58 19:59 Temp 99.5 Pulse 62 Resp 16 16 16 B/P (MAP) 163/71 Pulse Ox 95 O2 Flow Rate 0 EKG/XRAY/CT/US/VASC/MRI Bone/Soft Tissue X-Ray (Ext.) : Interpreted By: self Views: 2 VIEW Indication: pain Location: Shoulder Impression: DJD Additional Comment no fracture or dislocation Departure Disposition: HOME / SELF CARE / HOMELESS Impression: Primary Impression: Shoulder pain Condition: Stable Discharge Instructions: Shoulder Pain Referrals: NO PRIMARY CARE PROVIDER (PCP) Prescriptions Hydrocodone Bit/Acetaminophen 5/325 MG (Taylor 5/325 MG) 5 Mg/325 Mg Tablet 1-2 TAB PO Q4-6 hours PRN for pain, #16 TAB Prov: PHILIP SANCHES MD 11/30/24 Education Educated: Patient Educated regarding: diagnosis, treatment, prognosis, need for follow up Signature Scribe Signature: . Attestation: . PHILIP SANCHES MD Nov 30, 2024 19:40
[2024-11-30] MEDS: ketorolac trometh 30MG/ML vial 30 MG/ML VIAL IM ONE (19:58)
[2024-11-30] MEDS: DEXAMETHASONE 6 MG TABLET PO ONE (19:58)
[2024-11-30] MEDS: HYDROcodone/acetaminophen 5mg/325mg tablet PO ONE ×2 (19:59→20:45)
[2024-11-30] MEDS ORDERED: HYDR-3965 PO (20:29)
[2024-11-30 21:06] VITALS: BP 181/94; PULSE 52; RESP 12; TEMP 98.9; O2SAT 96
== END 2024-11-30 21:07 | disposition home or self-care (01) ==
LOC: ER 17:18
DX: M25.511 Pain in right shoulder (principal); Z95.0 Presence of cardiac pacemaker
CPT/HCPCS: 73030; 96372; 99284; J1885; J8540